=== PATIENT | male | born 1985 | race Caucasian/White ===

== ENCOUNTER 2023-12-20 12:15 | Emergency (ER) | payer SELFPAY ==
[2023-12-20 12:48] LABS: Absolute Lymphocytes (CBC) 1.8 K/uL (0.7-4.9); Absolute Neutrophil 6.6 K/uL (1.8-8.0); Basophils % 0.5 % (0-1.3); Eosinophils % 0.2 % (0-4.4); Hematocrit 49.5 % (39.6-49.0); Hemoglobin 16.3 g/dL (13.6-17.9); Lymphocytes % 18.9 % (15.3-44.8); MCV 96.9 fL (80-100); MPV 8.9 fL (7.6-11.3); Monocytes % 10.8 % (3.3-12.3); Neutrophils % 69.6 % (41.7-73.7); Nucleated Red Blood Cells % 0.1 % (0-0); Platelets 194 thou/uL (152-406); RBC Red Blood Cell Count 5.11 M/uL (4.33-5.43); Red Cell Distribution Width 13.4 % (12.1-15.2)
[2023-12-20 12:57] LABS: Barbiturates NEGATIVE (NEGATIVE); Benzodiazepines NEGATIVE (NEGATIVE); Cocaine NEGATIVE (NEGATIVE); METHAMPHETAM POSITIVE (NEGATIVE); Methadone NEGATIVE (NEGATIVE); Opiates NEGATIVE (NEGATIVE); Phencyclidine NEGATIVE (NEGATIVE); THC Cannibis NEGATIVE (NEGATIVE)
[2023-12-20 13:08] LABS: ALT/SGPT 20 U/L (16-61); AST/SGOT 11 U/L (15-37); Albumin 4.6 g/dL (3.4-5.0); Albumin/Globulin Ratio 1.3 (1.1-1.8); Alkaline Phosphatase 60 U/L (45-117); Anion Gap 11.6 mEq/L (5.0-15.0); BUN Blood Urea Nitrogen 21 mg/dL (7-18); Bicarbonate 24 mEq/L (21-32); Bilirubin Total 0.9 mg/dL (0.2-1.0); Globulin 3.6 g/dL (2.3-3.5); Glomerular Filtration Rate 69 ml/min (=/>90); Glucose Level 105 mg/dL (74-106); Potassium 3.6 mEq/L (3.5-5.1); Protein, Total 8.2 g/dL (6.4-8.2); Sodium Level 137 mEq/L (136-145)
--- NOTE | 2023-12-20 13:25 | ER ---
Nurse's Notes [facility] Name: William Caba Age: 38 yrs Sex: Male : 1985 Arrival Date: 12/20/2023 Time: 12:15 Bed 11 Private MD: Diagnosis: Paranoid delusions Presentation: 12/19 12:25 Chief complaint: Per [employer] officer and [employer] with [facility] the patient walked into the 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 Patient states he hasnt slept in a week but denies taking any street drugs. Reports taking Adderall and lorazepam for anxiety and PTSD. Denies SI and HI. PATIENT HAS BEEN SCREENED BY TAQUERIA WITH [facility] AND TAQUERIA'S RECOMMENDATION IS INPATIENT TREATMENT. Patient is here on an KENNETH from the mental health deputy. Coronavirus screen: Vaccine status: Patient reports being unvaccinated. Ebola Screen: No symptoms or risks identified at this time. Initial Sepsis Screen: Does the patient meet any 2 criteria? No. Patient's initial sepsis screen is negative. Does the patient have a suspected source of infection? No. Patient's initial sepsis screen is negative. Risk Assessment: Do you want to hurt yourself or someone else? Patient reports no desire to harm self or others. Onset of symptoms was December 20, 2023. 12:25 Method Of Arrival: Law Enforcement: [facility] 12:25 Acuity: MIKIE 2 nm1 Historical: - Allergies: 12:30 PENICILLINS; me1 - PMHx: 12:30 Anxiety; PTSD; me1 - PSHx: 12:30 septoplasty; nm1 - Immunization history:: Adult Immunizations up to date. - Infectious Disease History:: Denies. - Social history:: Smoking status: Patient reports the use of cigarette tobacco products, denies chronic smoking, but will smoke occasionally. Screenin:15 [facility] ED Fall Risk Assessment (Adult) History of falling in the last 3 months, kc6 including since admission No falls in past 3 months (0 pts) Confusion or Disorientation Yes (5 pts) Intoxicated or Sedated No (0 pts) Impaired Gait No (0 pts) Mobility Assist Device Used No (0 pt) Altered Elimination No (0 pt) Score/Fall Risk Level 3 or more points = High Risk. Abuse screen: Denies threats or abuse. Denies injuries from another. Nutritional screening: No deficits noted. Tuberculosis screening: No symptoms or risk factors identified. Assessment: 12:15 General: Appears in no apparent distress. comfortable, well groomed, well developed, kc6 Behavior is calm, cooperative, appropriate for age. Pain: Denies pain. Neuro: Level of Consciousness is awake, alert, obeys commands, Oriented to person, time. Cardiovascular: Capillary refill < 3 seconds. Respiratory: Airway is patent Trachea midline Respiratory effort is even, unlabored, Respiratory pattern is regular, symmetrical. GI: No signs and/or symptoms were reported involving the gastrointestinal system. : No signs and/or symptoms were reported regarding the genitourinary system. EENT: No signs and/or symptoms were reported regarding the EENT system. Derm: No signs and/or symptoms reported regarding the dermatologic system. Skin is intact, is healthy with good turgor, Skin is pink, warm \\T\\ dry. Musculoskeletal: No signs and/or symptoms reported regarding the musculoskeletal system. Circulation, motion, and sensation intact. Capillary refill < 3 seconds, Range of motion: intact in all extremities. Psych: 13:09 [place] Suicide Severity Screening: In the past month, have you wished you were kc6 or wished you could go to sleep and not wake up? Patient responds "No." "In the past month, have you actually had any thoughts of killing yourself?" Patient responds "no." "In your lifetime, have you ever done anything, started to do anything, or prepared to do anything to end your life?" Patient responds "no.". Subjective: Delusions are grandiose, persecutory, Hallucinations are suspected. Objective: Patient is cooperative, Speech is rapid, soft, Affect is flat. Interventions: Removed personal items and placed in bag. Patient placed in hospital gown. Searched person for dangerous items. Urine collected and sent for urine drug test. Belonging list filled out. Safety Checks: Personal items have been removed. Door is closed to patient's room. No visitors are present at this time. unable to obtain. Commitment: Patient will be an involuntary commitment. pt on an KENNETH. Vital Signs: 12:15 BP 135 / 72; Pulse 90; Resp 19 S; Temp 98.1(TE); Pulse Ox 100% on R/A; Pain 0/10; kc6 12:25 Weight 71.67 kg; Height 6 ft. 1 in. ; me1 13:28 BP 115 / 85; Pulse 91; Resp 17; Temp 97.9; Pulse Ox 100% on R/A; bc6 16:52 BP 126 / 71; Pulse 89; Resp 16; Temp 98.1; Pulse Ox 100% on R/A; me1 12:25 Body Mass Index 20.85 (71.67 kg, 185.42 cm) me1 12:15 Pain Scale: Adult [facility] ED Course: 12:15 Patient has correct armband on for positive identification. Bed in low position. Side 6 rails up X2. Valuables inventory done. Locked in safe. See valuables checklist. Door closed. Noise minimized. Visitors limited. Lights dimmed. Moved to private room. Warm blanket given. Pillow given. PO fluids given. Patient is placed in psych hold. 12:19 Patient arrived in ED. bd 12:21 Laura Arauz, RN is Primary Nurse. me1 12:23 Lela Farrar MD is Attending Physician. az2 12:24 Manasa Pena, ETHAN is Primary Nurse. [facility] 12:30 Triage completed. me1 12:30 Arm band placed on Patient placed in an exam room. me1 12:39 Ethanol Sent. bc6 12:39 Urine Drug Screen Sent. bc6 12:39 Acetaminophen Sent. bc6 12:39 Salicylate Sent. bc6 12:39 CMP Sent. bc6 12:39 CBC with Diff Sent. bc6 12:39 Initial lab(s) drawn, by nm, sent to lab. Inserted saline lock: 20 gauge in right bc6 forearm, using aseptic technique. Blood collected. 13:12 pts fathers number............[phone]. bd 13:24 Report given to Laura Arauz RN. [facility] 13:29 Primary Nurse role handed off by Manasa Pena, ETHAN me1 13:29 Laura Arauz, ETHAN is Primary Nurse. me1 13:30 Provided Education on: POC. Verbalized understanding. me1 13:30 No provider procedures requiring assistance completed. me1 14:58 faxed chart to [facility]. bd 15:15 Report given to Walker at [facility]. 1 15:52 pt accepted in transfer to [facility] by dr Paiz admin approval given by Kathleen Larios. 16:48 IV discontinued, intact, bleeding controlled, No redness/swelling at site. Pressure me1 dressing applied. Administered Medications: No medications were administered Medication: 13:30 VIS not applicable for this client. me1 Outcome: 13:25 ER care complete, transfer ordered by . sd2 16:49 Transferred by ground EMS Note: [facility] manager. transferring to [facility] me1 16:49 Condition: stable 16:49 Instructed on the need for transfer, 16:56 Patient left the ED. me1 Signatures: Patience Yates Lynsay, RN RN ll1 Lela Farrar MD MD sd2 Manasa Pena RN RN 6 Caro Rand [facility] Laura Arauz RN RN me1
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
[2023-12-20 17:36] VITALS: O2SAT 100
[2023-12-20 17:47] VITALS: BP 126/71; TEMP 98.1
--- NOTE | 2023-12-23 13:39 | EKG ---
Test Date: 2023-12-20 Test Time: 12:47:38 Senior Windows Administrator: MICHELLE MEASUREMENT RESULTS: Intervals: Rate: 97 TX: 162 QRSD: 96 QT: 364 QTc: 462 [place]: P: 57 TX: 162 QRS: 29 T: 38 INTERPRETIVE STATEMENTS: Normal sinus rhythm Normal ECG No previous ECG available for comparison Electronically Signed On 12-23-23 13:32:36 CDT by Bradley Steel
== END 2023-12-20 16:56 ==
LOC: ER 12:15
DX: F22 Delusional disorders (principal)
CPT/HCPCS: 36415; 80053; 80143; 80179; 80307; 82077; 85025; 93005; 99285